=== PATIENT | female | born 1960 | race Caucasian/White ===

== ENCOUNTER 2016-07-08 18:35 | Emergency (ER) | payer OTHER ==
[2016-07-08 18:50] VITALS: BP 93/57; PULSE 82; TEMP 97.8; BMI 21.0
--- NOTE | 2016-07-08 19:06 | PDOC ---
History of Present Illness - General Chief Complaint: Injury Stated Complaint: LEFT HAND PUNCTURE WOUND Time Seen by Provider: 07/08/16 19:05 - History of Present Illness Initial Comments: This 55-year-old woman with a history of graves disease and hyperlipidemia presents with injury to her left hand. Just prior to presentation, the patient was preparing dinner for guests and she cut herself with a sharp knife at the base of her left thumb. Patient describes tip of knife entering skin on the palm side of the finger. Laceration bled initially but bleeding stopped with direct pressure to the wound. She describes pain in the area of the laceration but no numbness/pain/paresthesias of the thumb or other fingers. She has experienced no weakness in the thumb or other fingers. Patient has no history of poor wound healing or immune deficiency. She has no history of resistant organism colonization or infection Last tetanus booster was given here after laceration in 2014 Medications as noted ALLERGIES: Sulfa Past History - Past Medical History Allergies/Adverse Reactions: Allergies Allergy/AdvReac Type Severity Reaction Status Date / Time Sulfa (Sulfonamide Allergy Mild Rash Verified 07/08/16 19:06 Antibiotics) sulfur [From Sulfur-8] Allergy Verified 11/29/14 19:03 Home Medications: Ambulatory Orders Levothyroxine [Synthroid -] 75 mcg PO DAILY 11/29/14 Atorvastatin Ca [Lipitor] 5 mg PO HS 07/08/16 Escitalopram Oxalate [Lexapro -] 5 mg PO DAILY 07/08/16 Hypercholesterolemia: Yes Thyroid Disease: Yes (GRAVES) - Immunization History TDAP Vaccination: Yes (11/29/14) Immunization Up to Date: No - Psycho/Social/Smoking Cessation Hx Anxiety: No Suicidal Ideation: No Smoking History: Never smoked Hx Alcohol Use: Yes (OCCASIONAL) Drug/Substance Use Hx: No Substance Use Type: None Review of Systems - Review of Systems Able to Perform ROS?: Yes Comments:: 12 point review of systems is negative except for what is noted in the history of present illness *Physical Exam - Vital Signs Last Vital Signs Temp Pulse Resp BP Pulse Ox 97.8 F 82 15 93/57 99 07/08/16 18:40 07/08/16 18:40 07/08/16 18:40 07/08/16 18:40 07/08/16 18:40 - Physical Exam Comments: GENERAL: Awake, alert, and fully oriented, in no acute distress HEAD: No signs of trauma EYES: PERRLA, EOMI, sclera anicteric, conjunctiva clear ENT: Auricles normal inspection, hearing grossly normal, nares patent, oropharynx clear without exudates. Moist mucosa NECK: Normal ROM, supple, no lymphadenopathy, JVD, or masses LUNGS: Breath sounds clear and equal. No wheezes, and no crackles HEART: Regular rate and rhythm, normal S1 and S2, no murmurs, rubs or gallops ABDOMEN: Soft, nontender, normoactive bowel sounds. No guarding, no rebound. No masses EXTREMITIES: Normal range of motion, no edema. No clubbing or cyanosis. No cords, erythema, or tenderness NEUROLOGICAL: Cranial nerves II through XII grossly intact. Normal speech, normal gait SKIN: 0.5 cm full-thickness linear laceration, nonbleeding at base of left thumb (palmar aspect) Minimal tenderness/edema of left thenar eminence Motor/sensory functioning of thumb and remainder of fingers normal Remainder skin exam is normal Procedures - Laceration/Wound Repair Left Hand Wound Length: to 2.5 cm Wound Explored: clean Wound's Depth, Shape: linear Irrigated w/ Saline: Yes Betadine Prep: No (hibiclens/ethanol) Anesthesia: 1% Lidocaine Amount of Anesthetic (ccs): 1 Wound Repaired With: Sutures Suture Size/Type: 5:0, nylon Number of Sutures: 3 Sterile Dressing Applied: Yes Splint Applied: No Progress: Area around laceration was prepped using ethanol/Hibiclens solution and sterilely draped. 1 mL of 1% lidocaine infiltrated into the subcutaneous tissue for anesthesia. Wound irrigated with 40 mL of sterile normal saline. Wound closed with 3 interrupted sutures of 5-0 nylon. Bacitracin and sterile gauze dressing applied to wound. Patient tolerated procedure well. Medical Decision Making - Medical Decision Making This 55-year-old woman presents with laceration/puncture wound to the palmar aspect of the base of the left thumb, sustained when she was preparing food in her kitchen just prior to presentation. Patient is up-to-date on her tetanus prophylaxis Exam as noted above shows linear half centimeter laceration with some edema and tenderness of the thenar eminence but no evidence of motor or sensory deficit of the distal digit. Repair of laceration as noted above. Patient is leaving for trip to [place] in several days, returning on July 20. Patient prefers not to have her sutures removed until she returns from the trip. Although this is outside of the usual 10 day interval for suture removal , patient advised to keep bacitracin/Neosporin on wound. She will see nearest medical facility if any evidence of inflammation/infection occur. *DC/Admit/Observation/Transfer Diagnosis at time of Disposition: Hand laceration Qualifiers: Encounter type: initial encounter Foreign body presence: without foreign body Laterality: left Qualified Code(s): S61.412A - Laceration without foreign body of left hand, initial encounter - Discharge Dispostion Disposition: HOME Condition at time of disposition: Stable - Referrals Referrals: Shar Francis [Primary Care Provider] - - Patient Instructions Printed Discharge Instructions: How to Care for a Laceration After Repair Additional Instructions: keep original bandage in place as dry as possible for 48 hours elevate hand tonight ibuprofen/naproxen/acetaminophen as needed for pain after 2 days, bandaid during day/open at night can use bacitracin/neosporin on wound surface return or see your doctor if area is painful,red,swollen have sutures removed in 7- 10 days
== END 2016-07-08 19:50 | disposition home or self-care (01) ==
LOC: FER 18:35
PROC: 0HQGXZZ Repair Left Hand Skin, External Approach (ICD-10-PCS; principal; 2016-07-08)
DX: S61.412A Laceration without foreign body of left hand, initial encounter (principal); W26.0XXA Contact with knife, initial encounter; Y93.G3 Activity, cooking and baking; Y92.000 Kitchen of unspecified non-institutional (private) residence as the place of occurrence of the external cause; E05.00 Thyrotoxicosis with diffuse goiter without thyrotoxic crisis or storm; E78.5 Hyperlipidemia, unspecified
CPT/HCPCS: 99282-25

== ENCOUNTER 2016-07-21 11:14 | Emergency (ER) | payer OTHER ==
--- NOTE | 2016-07-21 11:19 | PDOC ---
Suture Removal/Wound Check HPI - History of Present Illness Chief Complaint: Suture/Staple Removal(Here) Stated Complaint: SUTURE REMOVAL Time Seen by Provider: 07/21/16 11:19 History Source: Yes: Patient Exam Limitations: Yes: No Limitations Treated at: [facility] ED - Previous ED Treatment Type of procedure performed on last visit: Yes: Laceration Repair Tetanus Immunization: Yes: Up to Date Antibiotics Prescribed: No - Onset of Previous Treatment Date of Occurence: 07/08/16 Comment:: 55 yo F s/p laceration repair on 07/08 aftert she cut herself while cooking. No erythema, drainage, weakness, numbness. Slight discomfort around the sutures. Past History - Past Medical History Allergies/Adverse Reactions: Allergies Sulfa (Sulfonamide Antibiotics) Allergy (Mild, Verified 07/21/16 11:16) Rash sulfur [From Sulfur-8] Allergy (Verified 07/21/16 11:16) Home Medications: Ambulatory Orders Levothyroxine [Synthroid -] 75 mcg PO DAILY 11/29/14 Atorvastatin Ca [Lipitor] 5 mg PO HS 07/08/16 Escitalopram Oxalate [Lexapro -] 5 mg PO DAILY 07/08/16 - Immunization History Immunizations Up to Date: No - Social History Smoking Status: Never smoked Suture Removal/Wound Check PE - Physical Exam Laceration/Wound Check Symptoms: reports: Improved Comments: EXTREMITIES: L hand with [address] to webspace between 1st and 2nd digit. Slight erythema around the sutures. No drainage, no induration. *Review of Systems - Review of Systems Able to Perform ROS?: Yes Comments:: GENERAL/CONSTITUTIONAL: No fever or chills. No weakness. MUSCULOSKELETAL: No joint or muscle swelling or pain. No neck or back pain. SKIN: No rash. Healing laceration. Procedures - Additional Procedures Additional Procedures: other Progress: 07/21/16 11:26 Three sutures removed using forceps and scissors. Patient tolerated well, no complications. Wound is well-approximated. Steri-strips placed. *DC/Admit/Observation/Transfer Diagnosis at time of Disposition: Encounter for removal of sutures - Discharge Dispostion Disposition: HOME Condition at time of disposition: Stable Admit: No - Referrals Referrals: Shar Francis [Primary Care Provider] - - Patient Instructions Printed Discharge Instructions: DI for Suture Removal
[2016-07-21 11:23] VITALS: BP 105/56; BMI 20.9
== END 2016-07-21 11:31 | disposition home or self-care (01) ==
LOC: FER 11:14
DX: Z48.02 Encounter for removal of sutures (principal)
CPT/HCPCS: 99281-25